=== PATIENT | female | born 1955 | race Caucasian/White ===

== ENCOUNTER 2020-01-07 20:07 | Emergency (ER) | payer OTHER ==
[2020-01-07 20:12] VITALS: BMI 20.4
[2020-01-07] MEDS ORDERED: SODIUM CHLORIDE 1,000 ML IV STA (20:13)
--- NOTE | 2020-01-07 20:14 | PDOC ---
Rapid Medical Evaluation Time Seen by Provider: 01/07/20 20:11 Medical Evaluation: Allergies Allergy/AdvReac Type Severity Reaction Status Date / Time Penicillins Allergy Difficulty Verified 03/27/12 15:31 Breathing 01/07/20 20:11 Pt presents to the ER for weakness to both legs and dizziness after eating figs Exam: NAD, speaking in full sentences. No stridor Orders: EKG, labs, IV Pt to proceed to the ER for further evaluation Discharge Disposition - Diagnosis Lightheaded - Referrals - Patient Instructions - Post Discharge Activity
--- NOTE | 2020-01-07 21:25 | PDOC ---
History of Present Illness - General Chief Complaint: Lightheaded Stated Complaint: SICK Time Seen by Provider: 01/07/20 20:11 - History of Present Illness Initial Comments: 01/07/20 21:24 HPI: 64 y/o F with hx of depression and BL breast CA s/p BL mastectomy presenting with "dizziness" and weakness after eating figs at home. She reports eating alot of sugar today including coffee with sugar, somali toast with syrup, and cook ies. She also reports some anxiety today and concern over her sugar being high. She denies any focal weakness, no falls, no trauma. She denies chest pain, SOB, fevers, LOCKE, syncope, dysuria. PMHx: as noted above ROS: as noted SHx: Denies tobacco use; no alcohol use; no rec drugs Allergies: NKDA ROS: GENERAL/CONSTITUTIONAL: No fever or chills. +gen weakness. HEAD, EYES, EARS, NOSE AND THROAT: No change in vision. No ear pain or discharge. No sore throat. CARDIOVASCULAR: No chest pain or shortness of breath RESPIRATORY: No cough, wheezing, or hemoptysis. GASTROINTESTINAL: No nausea, vomiting, diarrhea or constipation. GENITOURINARY: No dysuria, frequency, or change in urination. MUSCULOSKELETAL: No joint or muscle swelling or pain. No neck or back pain. SKIN: No rash NEUROLOGIC: No headache, vertigo, loss of consciousness, or change in strength/sensation. ENDOCRINE: No increased thirst. No abnormal weight change HEMATOLOGIC/LYMPHATIC: No anemia, easy bleeding, or history of blood clots. ALLERGIC/IMMUNOLOGIC: No hives or skin allergy. PE: GENERAL: Awake, alert, and fully oriented, no acute distress HEAD: No signs of trauma, normocephalic, atraumatic EYES: EOMI, sclera anicteric, conjunctiva clear ENT: Auricles normal inspection, hearing grossly normal, nares patent, oropharyn x clear without exudates. Moist mucosa NECK: Normal ROM, no lymphadenopathy LUNGS: No increased work of breathing, symmetrical chest rise, clear to auscultation bilaterally, no wheezes, crackles or rhonchi HEART: Regular rate, regular rhythm, normal S1 and S2, no murmur, peripheral pulses 2+ and equal bilaterally. ABDOMEN: Soft, nondistended, nontender. No guarding, no rebound. No masses. No CVAT MUSCULOSKELETAL: FROM NEUROLOGICAL: Cranial nerves II through XII grossly intact. Normal speech, s table gait, no focal sensorimotor deficits SKIN: Warm, Dry, normal turgor, no rashes or lesions noted Past History - Medical History Allergies/Adverse Reactions: Allergies Allergy/AdvReac Type Severity Reaction Status Date / Time Penicillins Allergy Difficulty Verified 01/07/20 20:12 Breathing Home Medications: Ambulatory Orders Desvenlafaxine Succinate [Pristiq] 100 mg PO DAILY 10/12/11 Fluticasone/Salmeterol [Advair 250-50 Diskus] 1 each IH PRN PRN 10/12/11 Acetaminophen [Tylenol] 650 mg PO Q4H PRN 11/22/11 Calcium Carbonate/Vitamin D3 [Calcium + Vitamin D Tablet] 1 each PO DAILY 11/22/11 Letrozole [Femara] 2.5 mg PO DAILY 11/22/11 Olanzapine [Zyprexa] 5 mg PO HS 11/22/11 Anemia: No Asthma: Yes (weather induced-cold) Cancer: Yes (breast cancer-sx) Cardiac Disorders: No CVA: No COPD: No CHF: No Dementia: No Diabetes: No GI Disorders: No Disorders: No HTN: No Hypercholesterolemia: Yes Liver Disease: No Seizures: No Thyroid Disease: No - Surgical History Abdominal Surgery: No Appendectomy: Yes Cardiac Surgery: No Cholecystectomy: No Lung Surgery: No Neurologic Surgery: No Orthopedic Surgery: No - Psycho-Social/Smoking History Smoking Status: No Smoking History: Never smoked Have you smoked in the past 12 months: No Number of Cigarettes Smoked Daily: 0 - Substance Abuse Hx (Audit-C & DAST Scrn) How often the patient has a drink containing alcohol: Never Score: In Men: 4 or > Positive; In Women: 3 or > Positive: 0 Screen Result (Pos requires Nsg. Audit-10AR): Negative In the last yr the pt used illegal drug/Rx for NonMed reason: No Score: Yes response is considered Positive: 0 Screen Result (Positive result requires Nsg. DAST-10): Negative *Physical Exam - Vital Signs Last Vital Signs Temp Pulse Resp BP Pulse Ox 98.4 F 78 18 150/79 99 01/07/20 20:10 01/07/20 20:10 01/07/20 20:10 01/07/20 21:05 01/07/20 20:10 ED Treatment Course - LABORATORY CBC & Chemistry Diagram: 01/07/20 21:59 01/07/20 21:59 Medical Decision Making - Medical Decision Making 01/08/20 00:28 64 y/o F with hx of depression and BL breast CA s/p BL mastectomy presenting with "dizziness" and weakness after eating figs at home. With no other complaints at this time. VSS, AF. PE unremarkable -ekg, cbc, cmp, mg, ua, cxr, ivf 01/08/20 00:28 ekg nsr with no michelle/d cxr with no acute pathology labs wnl pending ua and will DC with return pcxn patient symptoms improved agrees with plan and would like to go home recommending followup with cardio 01/08/20 00:42 ua negative will dc home Discharge - Discharge Information Problems reviewed: Yes Clinical Impression/Diagnosis: Lightheaded Condition: Improved Disposition: HOME - Follow up/Referral Referrals: Freddie Rodriguez MD [Primary Care Provider] - Andres Umanzor MD [Staff Physician] - - Patient Discharge Instructions Patient Printed Discharge Instructions: DI for Dizziness-Nonvertigo Additional Instructions: Additional Instructions: Please return to the emergency department with any new or worsening symptoms or concerns including chest pain, shortness of breath, fainting. Please follow up with your primary care physician within 72 hours. Please ensure adequate hydration. Please followup with the meter supervisor referral included in the packet - Post Discharge Activity
[2020-01-07 22:25] LABS: BASO % 0.2 % (0-2.0); HEMATOCRIT 36.1 % (32.4-45.2); HEMOGLOBIN 12.1 GM/dL (10.7-15.3); LYMPH % 20.2 % (8-40); MCH 29.1 pg (25.7-33.7); MCHC 33.4 g/dl (32.0-36.0); MEAN CELL VOLUME 87.2 fl (80-96); MONO % 7.9 % (3.8-10.2); NEUT % 70.7 % (42.8-82.8); PLATELET COUNT 246 K/MM3 (134-434); RBC 4.14 M/mm3 (3.60-5.2); RDW 13.3 % (11.6-15.6); WHITE BLOOD COUNT 8.4 K/mm3 (4.0-10.0)
[2020-01-07 22:53] LABS: ALBUMIN 4.3 g/dl (3.4-5.0); BILIRUBIN,TOTAL 0.2 mg/dL (0.2-1); BLOOD UREA NITROGEN 15.2 mg/dL (7-18); CALCIUM 8.9 mg/dL (8.5-10.1); CREATININE 0.7 mg/dL (0.55-1.3); POTASSIUM 3.8 mmol/L (3.5-5.1); TOT PROT 7.4 g/dl (6.4-8.2)
--- NOTE | 2020-01-07 23:20 | PDOC ---
Attending Attestation - Resident Resident Name: Tylor Fuentes - ED Attending Attestation I have performed the following: I have examined & evaluated the patient, The case was reviewed & discussed with the resident, I agree w/resident's findings & plan - HPI HPI: 01/07/20 23:14 64 yo female w pmhx depression an bilat breast ca sp mastectomy >10 years ago here today w/ near syncope and generalized weakness assoc w/ whole body paraesthesias. denies assoc cp sob or focal weakness slurred speech. Feeling improved now after ivf - Physicial Exam PE: 01/07/20 23:17 Agree w/ res - Medical Decision Making 01/07/20 23:17 64 yo fem w. near syncpe plan ekg NSR 68 normal axis and intervals no acute ischemia Myesha IVF Reasses Well appearing given follow up and return precautions, steady gait, tolerating po 01/11/20 23:51 Discharge - Discharge Information Problems reviewed: Yes Clinical Impression/Diagnosis: Lightheaded Condition: Improved Disposition: HOME - Follow up/Referral Referrals: Freddie Rodriguez MD [Primary Care Provider] - Andres Umanzor MD [Staff Physician] - - Patient Discharge Instructions Patient Printed Discharge Instructions: DI for Dizziness-Nonvertigo Additional Instructions: Additional Instructions: Please return to the emergency department with any new or worsening symptoms or concerns including chest pain, shortness of breath, fainting. Please follow up with your primary care physician within 72 hours. Please ensure adequate hydration. Please followup with the washer assembler referral included in the packet - Post Discharge Activity
[2020-01-08 00:38] LABS: EPI CELLS 12 /uL (0-25.1); HYALINE CASTS 0 /uL (0-3.1); URINE APPEARANCE CLEAR; URINE BACTERIA 22 /uL (0-1359); URINE BILIRUBIN NEGATIVE (NEGATIVE); URINE COLOR YELLOW; URINE GLUCOSE (UA) NEGATIVE (NEGATIVE); URINE KETONE NEGATIVE (NEGATIVE); URINE LEUK ESTERASE TRACE (NEGATIVE); URINE NITRITE NEGATIVE (NEGATIVE); URINE PROTEIN NEGATIVE (NEGATIVE); URINE RBC 1 /uL (0-23.9); URINE UROBILINOGEN 0.2 mg/dL (0.2-1.0); URINE WBC 7 /uL (0-25.8)
[2020-01-08 02:01] VITALS: BP 147/69; PULSE 71; TEMP 98.1
--- NOTE | 2020-01-08 10:16 | EKG ---
Test Reason : Blood Pressure : / mmHG Vent. Rate : 068 BPM Atrial Rate : 068 BPM P-R Int : 120 ms QRS Dur : 102 ms QT Int : 428 ms P-R-T Axes : 002 021 032 degrees QTc Int : 455 ms NORMAL SINUS RHYTHM NORMAL ECG WHEN COMPARED WITH ECG OF 12-OCT-2011 13:21, T WAVE AMPLITUDE HAS DECREASED IN ANTERIOR LEADS Confirmed by MD Hernandez Daniel ([id number]) on 01/08/2020 10:16:25 AM Referred By: Confirmed By:Mikal Hernandez MD
== END 2020-01-08 01:00 | disposition home or self-care (01) ==
LOC: JER 20:07
PROC: 3E0337Z Introduction of Electrolytic and Water Balance Substance into Peripheral Vein, Percutaneous Approach (ICD-10-PCS; principal; 2020-01-07)
DX: R42 Dizziness and giddiness (principal)
CPT/HCPCS: 36415; 71046-TC-FY; 80053; 81003; 82550; 84484; 85025; 93005; 93010; 96360; 99285-25

== ENCOUNTER 2020-01-13 09:00 | Emergency (ER) | payer OTHER ==
[2020-01-13 09:10] VITALS: TEMP 97; BMI 20.4
--- NOTE | 2020-01-13 09:55 | PDOC ---
History of Present Illness - General Chief Complaint: Lightheaded Stated Complaint: SICK Time Seen by Provider: 01/13/20 09:14 - History of Present Illness Initial Comments: Pt is a 64yo F with PMH bipolar disorder, asthma, breast ca s/p b/l mastectomy who presents with lightheadedness, diffuse paresthesias, and loss of appetite over the past week. Pt states that 4 days ago, she discontinued her fluoxetine and olanzapine because she states it was making her feel unwell. States that she took a dose of olanzapine last night for her above mentioned symptoms, without improvement. Reports episodes of lightheadedness, palpitations, diffuse paresthesias, diaphoresis - described as intermittent, lasting 1-2 minutes, with variable duration and frequency. Reports onset of loss of appetite/nausea. Denies f/c, chest pain, SOB, abdominal pain. Denies SI/HI/command hallucinations. PCP: Jennifer Psych: Camelia PMH: see above PSH: mastectomy, Meds: see chart Allergies: penicillin (anaphylaxis) Review of Systems CONSTITUTIONAL:see HPI HEENT:denies rhinorrhea, nasal congestion, sore throat, visual changes CARDIOVASCULAR:denies chest pain, syncope, palpitations, peripheral edema RESPIRATORY:denies cough, shortness of breath, wheezing GASTROINTESTINAL: see HPI; denies abdominal pain, vomiting, diarrhea, constipation, melena, hematochezia GENITOURINARY:denies dysuria, frequency, hematuria, flank pain MUSCULOSKELETAL:denies myalgia, arthralgia HEMATOLOGIC/IMMUNOLOGIC:denies easy bleeding, easy bruising ENDOCRINE: denies unexplained weight gain, unexplained weight loss NEUROLOGIC:reports lightheadedness/imbalance; denies headache, loss of consciousness, dizziness, mental status changes, bladder or bowel incontinence SKIN:denies rash, itching, pallor PSYCHIATRIC:reports anxiety; denies depression, suicidal or homicidal ideation, hallucinations. Physical Exam General: awake, alert, fully oriented, in no acute distress Head: normocephalic, atraumatic; facial twitching noted on exam Eyes: PERRL, EOMI, anicteric sclera, conjunctiva clear ENT: Auricles normal inspection, hearing grossly normal, oropharynx clear without exudates, moist mucous membranes Neck: supple, normal ROM Lung: equal breath sounds b/l, CTA b/l, no crackles, wheezes; no distress, speaks full sentences Heart: RRR, normal S1, S2, no murmurs appreciated Abdomen: soft, non tender, normoactive bowel sounds, no guarding, rebound, masses Extremities: normal ROM, no edema, no erythema or tenderness, DP/PT pulses 2+ and symmetric, no clubbing, cyanosis Neuro: Cranial nerves: Cranial nerves II through XII are intact Motor: The upper extremities are 5/5 in all muscle groups. The lower extremities are 5/5 in all muscle groups. No pronator drift. Sensation: Sensation is intact to light touch throughout. Cerebellar: -dysmetria, -dysdiadochokinesia Gait: Normal Skin: warm, dry, no rashes or lesions noted Psych: flat affect, poor eye contact MDM Pt is a 64yo F with PMH bipolar disorder, asthma, breast ca s/p b/l mastectomy who presents with lightheadedness, diffuse paresthesias, and loss of appetite over the past week. DDx including but not limited to: hyperthyroid, medication related, hypomagnesemia Workup: labs - BMP, TSH/T4, VBG, ekg TX: 1L LR EKG: normal sinus rhythm, HR 75bpm, UT 118ms, QRS 92ms, QTc 417ms, TWI in AVR ED course - reports component of epigastric burning pain a/w nausea and PO intake; Will order Maalox, Pepcid, Viscous Lido; will add on troponin - states would like adjustment in psych medications; informed patient that she will need follow up with her psych for this. Labs: Electrolytes WNL,troponin WNL, TSH/T4 WNL VBG cancelled - episodic symptoms with specific triggers of anxious thoughts; less likely due to acid-base disturbances Re-assessment: Patient stable for discharge. Informed of all lab results. Given follow up instructions and strict return precautions. Patient expressed understanding and agree to plan Disposition: Discharge to home Past History - Medical History Allergies/Adverse Reactions: Allergies Allergy/AdvReac Type Severity Reaction Status Date / Time Penicillins Allergy Difficulty Verified 01/13/20 09:06 Breathing Home Medications: Ambulatory Orders Desvenlafaxine Succinate [Pristiq] 100 mg PO DAILY 10/12/11 Fluticasone/Salmeterol [Advair 250-50 Diskus] 1 each IH PRN PRN 10/12/11 Acetaminophen [Tylenol] 650 mg PO Q4H PRN 11/22/11 Calcium Carbonate/Vitamin D3 [Calcium + Vitamin D Tablet] 1 each PO DAILY 11/22/11 Letrozole [Femara] 2.5 mg PO DAILY 11/22/11 Olanzapine [Zyprexa] 5 mg PO HS 11/22/11 Famotidine [Pepcid -] 20 mg PO BID #14 tablet 01/13/20 Anemia: No Asthma: Yes (weather induced-cold) Cancer: Yes (breast cancer-sx) Cardiac Disorders: No CVA: No COPD: No CHF: No Dementia: No Diabetes: No GI Disorders: No Disorders: No HTN: No Hypercholesterolemia: Yes Liver Disease: No Psychiatric Problems: Yes (anxiety) Seizures: No Thyroid Disease: No - Surgical History Abdominal Surgery: No Appendectomy: Yes Cardiac Surgery: No Cholecystectomy: No Lung Surgery: No Neurologic Surgery: No Orthopedic Surgery: No - Psycho-Social/Smoking History Smoking Status: No Smoking History: Never smoked Have you smoked in the past 12 months: No Number of Cigarettes Smoked Daily: 0 - Substance Abuse Hx (Audit-C & DAST Scrn) How often the patient has a drink containing alcohol: Never Score: In Men: 4 or > Positive; In Women: 3 or > Positive: 0 Screen Result (Pos requires Nsg. Audit-10AR): Negative *Physical Exam - Vital Signs Last Vital Signs Temp Pulse Resp BP Pulse Ox 97 F L 99 H 18 142/88 99 01/13/20 09:03 01/13/20 09:03 01/13/20 09:03 01/13/20 09:03 01/13/20 09:03 ED Treatment Course - LABORATORY CBC & Chemistry Diagram: 01/13/20 10:45 Discharge - Discharge Information Problems reviewed: Yes Clinical Impression/Diagnosis: Lightheaded Acid reflux Qualifiers: Esophagitis presence: esophagitis presence not specified Qualified Code(s): K21.9 - Gastro-esophageal reflux disease without esophagitis Condition: Stable Disposition: HOME - Additional Discharge Information Prescriptions: Famotidine [Pepcid -] 20 mg PO BID #14 tablet - Follow up/Referral Referrals: Freddie Rodriguez MD [Primary Care Provider] - Jose Angel Denise NP [Non Staff, Medical] - - Patient Discharge Instructions Patient Printed Discharge Instructions: DI for Gastroesophageal Reflux Disease (GERD) Additional Instructions: You came into the ER lightheadedness, tingling sensations, and nausea. In the ED, you were evaluated with blood work and electrocardiogram (EKG). Your EKG was normal; Your blood work was normal. You do not appear to be an acute need for immediate hospitalization You were advised to follow up with your primary doctor within 1-2 weeks. Call tomorrow to schedule an appointment You were advised to follow up with your psychiatrist within 1 week. Call tomorrow to schedule an appointment. Discuss your medications with him. You were given a prescription for Pepcid. Take this medication two times a day. Come back to the ER immediately with any new or worsening concerns. Thank you for coming to the [facility] ER. We hope you feel better soon! - Post Discharge Activity
[2020-01-13] MEDS ORDERED: LACTATED RINGERS SOLUTION 1000 ML INFUS.BAG IV ONE (10:08)
[2020-01-13] MEDS ORDERED: FAMOTIDINE 20 MG/50 ML IVPB 20 MG/50 ML MG IVPB ONE ×2 (10:20→10:25)
[2020-01-13] MEDS ORDERED: MAG HYDROX/AL HYDROX/SIMETH -MYLANTA- ORAL SUSPENSION PO ONE (10:20)
[2020-01-13] MEDS ORDERED: LIDOCAINE VISCOUS 2% ORAL/TOP 20 ML UNIT-DOSE CUP MM ONE (10:20)
[2020-01-13] MEDS ORDERED: LIDOCAINE VISCOUS 2% ORAL/TOP 20 ML UNIT-DOSE CUP ONE (10:24)
[2020-01-13] MEDS ORDERED: MAG HYDROX/AL HYDROX/SIMETH 30 ML UNIT-DOSE CUP ONE (10:25)
--- NOTE | 2020-01-13 11:18 | PDOC ---
Documentation entered by Ashish Lawler SCRIBE, acting as scribe for Rao Maguire MD. Rao Maguire MD: This documentation has been prepared by the Nuris mina Angel, SCRIBE, under my direction and personally reviewed by me in its entirety. I confirm that the documentation accurately reflects all work, treatment, procedures, and medical decision making performed by me. Attending Attestation - Resident Resident Name: BayronAngelica - ED Attending Attestation I have performed the following: I have examined & evaluated the patient, The case was reviewed & discussed with the resident, I agree w/resident's findings & plan, Exceptions are as noted - HPI HPI: 01/13/20 11:14 The patient is a 64 year old female with a significant past medical history of asthma, bipolar disorder, depression and BL breast CA s/p BL mastectomy who presents to the ED with loss of appetite, lightheadedness and diffuse paresthesias over the past week. The patient states 4 days ago she stopped taking her fluoxetine and olanzapine because it made her feel worse. However, she notes taking a dose of olanzapine last night for her symptoms with no relief. The patient notes her palpitations are more of panic attacks that occur when she begins to think about life stressers. The patient reports episodes of lightheadedness, diffuse paresthesias and loss of appetite as intermittent, varying in duration and frequency. The patient denies SI/HI, nausea, chest pain, vomiting or cough. - Physicial Exam PE: 01/13/20 11:16 GENERAL: The patient is awake, alert, and fully oriented, Nontoxic - in no acute distress. HEAD: Normocephalic, atraumatic. EYES: extraocular movements intact, sclera anicteric, conjunctiva clear. ENT: Normal voice, Moist mucous membranes. NECK: Normal range of motion, supple without lymphadenopathy, JVD, or masses. LUNGS: Breath sounds equal, clear to auscultation bilaterally. No wheezes, no crackles, no rales. HEART: Regular rate and rhythm, normal S1 and S2 without murmur, rub or gallop. ABDOMEN: Soft, nontender, normoactive bowel sounds. No guarding, no rebound. No masses. EXTREMITIES: Normal range of motion, no edema. No clubbing or cyanosis. No cor ds, erythema, or tenderness. NEUROLOGICAL: No facial asymmetry, Normal speech, normal gait. PSYCH: Normal mood, normal affect. SKIN: Warm, Dry, normal turgor, no rashes or lesions noted. - Medical Decision Making 01/13/20 11:03 suspect anxiety recentlab work without signs of anemia metabolic derangement will hdrate ismael repeat ekg supportive care Heart Score/ECG Review - ECG Impressions Comment:: 01/13/20 11:04 Twelve-lead EKG was performed and reviewed by me. There is normal sinus rhythm with a Rate of 75 The axis is normal. The intervals are normal. There is normal R wave progression There are no ST or T wave abnormalities. Impression: Normal twelve-lead EKG Discharge - Discharge Information Problems reviewed: Yes Clinical Impression/Diagnosis: Lightheaded Acid reflux Qualifiers: Esophagitis presence: esophagitis presence not specified Qualified Code(s): K21.9 - Gastro-esophageal reflux disease without esophagitis Condition: Stable Disposition: HOME - Admission No - Additional Discharge Information Prescriptions: Famotidine [Pepcid -] 20 mg PO BID #14 tablet - Follow up/Referral Referrals: Freddie Rodriguez MD [Primary Care Provider] - Jose Angel Denise NP [Non Staff, Medical] - - Patient Discharge Instructions Patient Printed Discharge Instructions: DI for Gastroesophageal Reflux Disease (GERD) Additional Instructions: You came into the ER lightheadedness, tingling sensations, and nausea. In the ED, you were evaluated with blood work and electrocardiogram (EKG). Your EKG was normal; Your blood work was normal. You do not appear to be an acute need for immediate hospitalization You were advised to follow up with your primary doctor within 1-2 weeks. Call tomorrow to schedule an appointment You were advised to follow up with your psychiatrist within 1 week. Call tomorrow to schedule an appointment. Discuss your medications with him. You were given a prescription for Pepcid. Take this medication two times a day. Come back to the ER immediately with any new or worsening concerns. Thank you for coming to the [facility] ER. We hope you feel better soon! - Post Discharge Activity
[2020-01-13 11:37] LABS: BLOOD UREA NITROGEN 14.9 mg/dL (7-18); CALCIUM 9.7 mg/dL (8.5-10.1); CREATININE 0.6 mg/dL (0.55-1.3); POTASSIUM 4.3 mmol/L (3.5-5.1)
[2020-01-13 12:11] VITALS: BP 150/84; PULSE 73
--- NOTE | 2020-01-14 11:19 | EKG ---
Test Reason : Blood Pressure : / mmHG Vent. Rate : 075 BPM Atrial Rate : 075 BPM P-R Int : 118 ms QRS Dur : 092 ms QT Int : 374 ms P-R-T Axes : 011 026 030 degrees QTc Int : 417 ms NORMAL SINUS RHYTHM NORMAL ECG WHEN COMPARED WITH ECG OF 07-JAN-2020 22:48, NO SIGNIFICANT CHANGE WAS FOUND Confirmed by MARIA ESTHER TUCKER MD ([id number]) on 01/14/2020 11:19:40 AM Referred By: Confirmed By:MARIA ESTHER TUCKER MD
== END 2020-01-13 12:11 | disposition home or self-care (01) ==
LOC: JER 09:00
PROC: 3E033GC Introduction of Other Therapeutic Substance into Peripheral Vein, Percutaneous Approach (ICD-10-PCS; principal; 2020-01-13)
DX: R42 Dizziness and giddiness (principal); K21.9 Gastro-esophageal reflux disease without esophagitis
CPT/HCPCS: 36415; 80048; 84439; 84443; 84484; 93005; 93010; 96374; 99284-25

== ENCOUNTER 2020-07-14 20:30 | Emergency (ER) | payer OTHER ==
[2020-07-14 20:47] VITALS: TEMP 98.3; BMI 19.0
[2020-07-14 22:14] LABS: BASO % 0.7 % (0-2.0); EOS % 2.7 % (0-4.5); HEMATOCRIT 35.7 % (32.4-45.2); LYMPH % 27.9 % (8-40); MCH 29.3 pg (25.7-33.7); MCHC 33.7 g/dl (32.0-36.0); MEAN CELL VOLUME 86.8 fl (80-96); MEAN PLT VOLUME 7.9 fl (7.5-11.1); NEUT % 59.7 % (42.8-82.8); PLATELET COUNT 236 K/MM3 (134-434); RBC 4.11 M/mm3 (3.60-5.2); RDW 13.7 % (11.6-15.6); WHITE BLOOD COUNT 6.2 K/mm3 (4.0-10.0)
[2020-07-14 22:32] LABS: CHLORIDE 107 mmol/L (98-107); POTASSIUM 3.5 mmol/L (3.5-5.1); SODIUM 140 mmol/L (136-145)
[2020-07-14 22:33] LABS: CALCIUM 8.6 mg/dL (8.5-10.1)
[2020-07-14 22:34] LABS: ALBUMIN 3.8 g/dl (3.4-5.0); ANION GAP 5 MMOL/L (8-16); BLOOD UREA NITROGEN 18.1 mg/dL (7-18); CO2 28 mmol/L (21-32); GLUCOSE,RANDOM 98 mg/dL (74-106); MAGNESIUM 2.2 mg/dL (1.8-2.4)
[2020-07-14 22:37] LABS: CREATININE 0.6 mg/dL (0.55-1.3); SGOT/AST 18 U/L (15-37); SGPT/ALT 19 U/L (13-61)
[2020-07-14 22:39] LABS: BILIRUBIN,TOTAL 0.4 mg/dL (0.2-1); TOT PROT 6.6 g/dl (6.4-8.2)
[2020-07-14 22:40] LABS: ALK PHOS 52 U/L (45-117)
[2020-07-14 23:05] VITALS: BP 130/87; PULSE 89
== END 2020-07-14 23:17 | disposition home or self-care (01) ==
LOC: JER 20:30
DX: R11.0 Nausea (principal); R00.2 Palpitations
CPT/HCPCS: 36415; 71045-TC-FY; 80053; 82550; 83735; 84443; 84484; 85025; 93005; 93010; 99285-25

== ENCOUNTER → 2020-11-18 | Day surgery (SDC) | payer OTHER | END | disposition home or self-care (01) | LOC: JRADIR 05:33 | PROVIDERS: ATTEND Internal Medicine Endocrinology, Diabetes & Metabolism | PROC: 0G9K3ZX Drainage of Thyroid Gland, Percutaneous Approach, Diagnostic (ICD-10-PCS; principal; 2020-11-18) | DX: E04.9 Nontoxic goiter, unspecified (principal) | CPT/HCPCS: 10005; 76942; 88173; 88305-TC ==

== ENCOUNTER 2020-12-01 04:42 | Emergency (ER) | payer OTHER ==
[2020-12-01 05:03] VITALS: BMI 20.1
[2020-12-01] MEDS ORDERED: ACETAMINOPHEN 1000 MG/100 ML VIAL (NON FORMULARY) IVPB ONE (05:50)
[2020-12-01 06:20] LABS: INR 0.95 (0.83-1.09); PROTHROMBIN TIME (PATIENT) 11.7 SEC (9.7-13.0)
[2020-12-01 06:21] LABS: CHLORIDE 107 mmol/L (98-107); SODIUM 140 mmol/L (136-145)
[2020-12-01] MEDS ORDERED: ACETAMINOPHEN INJECTION 100 ML IVPB ONE (06:22)
[2020-12-01 06:23] LABS: ACTIVATED PTT 26.4 SECONDS (25.2-36.5)
[2020-12-01 06:23] LABS: ALBUMIN 3.9 g/dl (3.4-5.0); CALCIUM 8.9 mg/dL (8.5-10.1)
[2020-12-01 06:24] LABS: ANION GAP 7 MMOL/L (8-16); BLOOD UREA NITROGEN 18.7 mg/dL (7-18); CO2 26 mmol/L (21-32); GLUCOSE,RANDOM 87 mg/dL (74-106)
[2020-12-01 06:27] LABS: BASO % 0.5 % (0-2.0); EOS % 1.8 % (0-4.5); HEMATOCRIT 40.5 % (32.4-45.2); HEMOGLOBIN 13.2 GM/dL (10.7-15.3); LYMPH % 34.9 % (8-40); MCHC 32.6 g/dl (32.0-36.0); MEAN CELL VOLUME 85.9 fl (80-96); MEAN PLT VOLUME 7.9 fl (7.5-11.1); MONO % 8.1 % (3.8-10.2); NEUT % 54.7 % (42.8-82.8); PLATELET COUNT 271 10^3/uL (134-434); RBC 4.72 M/mm3 (3.60-5.2); RDW 14.5 % (11.6-15.6); WHITE BLOOD COUNT 6.4 K/mm3 (4.0-10.0)
[2020-12-01 06:27] LABS: CREATININE 0.7 mg/dL (0.55-1.3); SGOT/AST 14 U/L (15-37); SGPT/ALT 21 U/L (13-61)
[2020-12-01 06:28] LABS: BILIRUBIN,TOTAL 0.3 mg/dL (0.2-1)
[2020-12-01 06:29] LABS: ALK PHOS 52 U/L (45-117)
[2020-12-01] MEDS ORDERED: SODIUM CHLORIDE 0.9% 500 ML INFUS.BAG IV ONE (07:03)
[2020-12-01 07:52] VITALS: BP 132/83; PULSE 71; TEMP 98.4
== END 2020-12-01 07:45 | disposition home or self-care (01) ==
LOC: JER 04:42
PROC: 3E0333Z Introduction of Anti-inflammatory into Peripheral Vein, Percutaneous Approach (ICD-10-PCS; principal; 2020-12-01)
DX: R00.2 Palpitations (principal)
CPT/HCPCS: 36415; 71045-TC-FY; 80053; 82550; 84443; 84484; 85025; 85610; 85730; 93005; 93010; 99285-25; J0131

== ENCOUNTER 2021-02-12 04:13 | Day surgery (SDC) | payer OTHER ==
[2021-02-12 07:12] VITALS: BMI 18.3
[2021-02-12] MEDS ORDERED: fentaNYL CITRATE 250 MCG/5 ML VIAL ONE (08:22)
[2021-02-12] MEDS ORDERED: MIDAZOLAM HCL 2 MG/2 ML SINGLE DOSE VIAL ONE (08:23)
[2021-02-12] MEDS ORDERED: SUCCINYLCHOLINE CHLORIDE 200 MG/10 ML SYRINGE ONE (08:23)
[2021-02-12] MEDS ORDERED: PROPOFOL 20 ML ONE (08:23)
[2021-02-12] MEDS ORDERED: LIDOCAINE 1%/EPI 1:100000 (20 ML MULTI DOSE VIAL) ONE (08:51)
[2021-02-12] MEDS ORDERED: BUPIVACAINE HCL/PF 0.5% (5MG/ML) 10 ML VIAL ONE (08:51)
[2021-02-12] MEDS ORDERED: MICROFIBRILLAR COLLAGEN 1 GM EACH ONE (08:51)
[2021-02-12] MEDS ORDERED: CLINDAMYCIN PHOSPHATE 600 MG/4 ML VIAL IVPB ONE (09:33)
[2021-02-12] MEDS ORDERED: CLINDAMYCIN PHOSPHATE 600 MG/4 ML VIAL ONE (09:36)
[2021-02-12] MEDS ORDERED: HYDROmorphone HCl 2 MG/ML VIAL ONE (10:07)
[2021-02-12] MEDS ORDERED: ACETAMINOPHEN INJECTION 100 ML IVPB ONE (10:10)
[2021-02-12] MEDS ORDERED: LIDOCAINE 1%/EPI 1:100000 (50 ML MULTI DOSE VIAL) INF ONE (10:15)
[2021-02-12] MEDS ORDERED: BUPIVACAINE HCL/PF 0.5% (5MG/ML) 10 ML VIAL IJ ONE ×2 (10:15)
[2021-02-12] MEDS ORDERED: MICROFIBRILLAR COLLAGEN 1 GM EACH TP ONE (10:21)
[2021-02-12] MEDS ORDERED: ONDANSETRON 4 MG/2 ML VIAL IVPUSH PRN (10:55)
[2021-02-12] MEDS ORDERED: oxyCODONE HCL 5 MG TABLET PO PRN ×2 (10:55)
[2021-02-12] MEDS ORDERED: PROMETHAZINE HCL 25 MG/1 ML VIAL IVPUSH PRN (10:55)
[2021-02-12] MEDS ORDERED: LACTATED RINGERS SOLUTION 1,000 ML IV SCH (11:00)
[2021-02-12 15:43] VITALS: BP 128/76; PULSE 85; TEMP 97.9
== END 2021-02-12 15:35 | disposition home or self-care (01) ==
LOC: JASU-SURG 04:13
PROVIDERS: ATTEND Surgery
PROC: 0GTH0ZZ Resection of Right Thyroid Gland Lobe, Open Approach (ICD-10-PCS; principal; 2021-02-12 09:00)
DX: C73 Malignant neoplasm of thyroid gland (principal)
CPT/HCPCS: 88307-TC; 94760; J0131

== ENCOUNTER 2021-03-29 12:57 | Emergency (ER) | payer OTHER ==
[2021-03-29 13:02] VITALS: TEMP 97; BMI 18.3
[2021-03-29 14:38] LABS: BASO % 0.6 % (0-2.0); EOS % 2.4 % (0-4.5); HEMOGLOBIN 12.8 GM/dL (10.7-15.3); LYMPH % 27.1 % (8-40); MCH 28.8 pg (25.7-33.7); MCHC 33.6 g/dl (32.0-36.0); MEAN CELL VOLUME 85.8 fl (80-96); MEAN PLT VOLUME 7.8 fl (7.5-11.1); NEUT % 61.9 % (42.8-82.8); PLATELET COUNT 306 10^3/uL (134-434); RBC 4.42 M/mm3 (3.60-5.2); RDW 14.1 % (11.6-15.6); WHITE BLOOD COUNT 7.1 K/mm3 (4.0-10.0)
[2021-03-29 14:41] LABS: EPI CELLS 4 /uL (0-25.1); HYALINE CASTS 0 /uL (0-3.1); URINE APPEARANCE CLEAR; URINE BACTERIA 12 /uL (0-1359); URINE BILIRUBIN NEGATIVE (NEGATIVE); URINE COLOR YELLOW; URINE GLUCOSE (UA) NEGATIVE (NEGATIVE); URINE KETONE NEGATIVE (NEGATIVE); URINE LEUK ESTERASE 1+ (NEGATIVE); URINE NITRITE NEGATIVE (NEGATIVE); URINE PROTEIN NEGATIVE (NEGATIVE); URINE RBC 1 /uL (0-23.9); URINE UROBILINOGEN 0.2 mg/dL (0.2-1.0); URINE WBC 9 /uL (0-25.8)
[2021-03-29 14:56] LABS: CHLORIDE 106 mmol/L (98-107); SODIUM 139 mmol/L (136-145)
[2021-03-29 14:58] LABS: ALBUMIN 3.9 g/dl (3.4-5.0); ANION GAP 3 MMOL/L (8-16); CO2 31 mmol/L (21-32)
[2021-03-29 14:59] LABS: GLUCOSE,RANDOM 102 mg/dL (74-106)
[2021-03-29 15:01] LABS: CREATININE 0.8 mg/dL (0.55-1.3); SGOT/AST 19 U/L (15-37); SGPT/ALT 27 U/L (13-61)
[2021-03-29 15:03] LABS: BILIRUBIN,TOTAL 0.2 mg/dL (0.2-1); TOT PROT 7.1 g/dl (6.4-8.2)
[2021-03-29 15:04] LABS: ALK PHOS 64 U/L (45-117)
[2021-03-29 16:09] VITALS: BP 128/84; PULSE 72
== END 2021-03-29 16:15 | disposition home or self-care (01) ==
LOC: JER 12:57
DX: K64.9 Unspecified hemorrhoids (principal)
CPT/HCPCS: 36415; 80053; 81003; 82272; 82550; 84484; 85025; 87086; 87186; 93005; 93010; 99283-25

== ENCOUNTER 2021-05-17 21:44 | Emergency (ER) | payer OTHER ==
[2021-05-17 21:52] VITALS: PULSE 80; TEMP 97.5; BMI 18.3
[2021-05-17] MEDS ORDERED: ACETAMINOPHEN 325 MG TABLET (FP) PO ONE (23:18)
[2021-05-17] MEDS ORDERED: ACETAMINOPHEN 325 MG TABLET (FP) ONE (23:28)
[2021-05-17 23:32] LABS: BASO % 0.9 % (0-2.0); EOS % 3.1 % (0-4.5); HEMATOCRIT 37.3 % (32.4-45.2); HEMOGLOBIN 12.3 GM/dL (10.7-15.3); LYMPH % 35.5 % (8-40); MCH 28.9 pg (25.7-33.7); MCHC 33.1 g/dl (32.0-36.0); MEAN CELL VOLUME 87.4 fl (80-96); MONO % 9.9 % (3.8-10.2); NEUT % 50.6 % (42.8-82.8); PLATELET COUNT 254 10^3/uL (134-434); RBC 4.27 M/mm3 (3.60-5.2); URINE APPEARANCE CLEAR; URINE BILIRUBIN NEGATIVE (NEGATIVE); URINE COLOR YELLOW; URINE GLUCOSE (UA) NEGATIVE (NEGATIVE); URINE KETONE NEGATIVE (NEGATIVE); URINE LEUK ESTERASE NEGATIVE (NEGATIVE); URINE NITRITE NEGATIVE (NEGATIVE); URINE PROTEIN NEGATIVE (NEGATIVE); URINE UROBILINOGEN 0.2 mg/dL (0.2-1.0); WHITE BLOOD COUNT 5.3 K/mm3 (4.0-10.0)
[2021-05-17 23:49] LABS: CHLORIDE 106 mmol/L (98-107); SODIUM 139 mmol/L (136-145)
[2021-05-17 23:51] LABS: CALCIUM 8.6 mg/dL (8.5-10.1)
[2021-05-17 23:52] LABS: ALBUMIN 3.3 g/dl (3.4-5.0); ANION GAP 4 MMOL/L (8-16); BLOOD UREA NITROGEN 24.5 mg/dL (7-18); CO2 29 mmol/L (21-32); GLUCOSE,RANDOM 97 mg/dL (74-106)
[2021-05-17 23:55] LABS: CREATININE 0.6 mg/dL (0.55-1.3); SGOT/AST 18 U/L (15-37); SGPT/ALT 20 U/L (13-61)
[2021-05-17 23:56] LABS: TOT PROT 6.6 g/dl (6.4-8.2)
[2021-05-17 23:57] LABS: BILIRUBIN,TOTAL 0.2 mg/dL (0.2-1)
[2021-05-17 23:58] LABS: ALK PHOS 53 U/L (45-117)
[2021-05-18 05:21] VITALS: BP 127/86
== END 2021-05-18 05:21 | disposition home or self-care (01) ==
LOC: JER 21:44
DX: R42 Dizziness and giddiness (principal)
CPT/HCPCS: 36415; 71045-TC-FY; 80053; 81003; 84439; 84443; 84484; 85025; 87086; 93005; 93010; 99285-25

== ENCOUNTER 2021-08-04 22:40 | Emergency (ER) | payer OTHER ==
[2021-08-04 22:48] VITALS: BP 138/85; TEMP 97.8; BMI 18.6
[2021-08-05 00:49] LABS: BASO % 0.6 % (0-2.0); EOS % 2.8 % (0-4.5); HEMATOCRIT 37.9 % (32.4-45.2); HEMOGLOBIN 13.1 GM/dL (10.7-15.3); LYMPH % 30.8 % (8-40); MCH 29.8 pg (25.7-33.7); MCHC 34.5 g/dl (32.0-36.0); MEAN CELL VOLUME 86.5 fl (80-96); MEAN PLT VOLUME 7.2 fl (7.5-11.1); MONO % 10.4 % (3.8-10.2); NEUT % 55.4 % (42.8-82.8); PLATELET COUNT 274 10^3/uL (134-434); RBC 4.38 M/mm3 (3.60-5.2); RDW 13.5 % (11.6-15.6); WHITE BLOOD COUNT 6.7 K/mm3 (4.0-10.0)
[2021-08-05 00:51] LABS: URINE APPEARANCE CLEAR; URINE BILIRUBIN NEGATIVE (NEGATIVE); URINE COLOR YELLOW; URINE GLUCOSE (UA) NEGATIVE (NEGATIVE); URINE KETONE NEGATIVE (NEGATIVE); URINE LEUK ESTERASE NEGATIVE (NEGATIVE); URINE NITRITE NEGATIVE (NEGATIVE); URINE PROTEIN NEGATIVE (NEGATIVE); URINE UROBILINOGEN 0.2 mg/dL (0.2-1.0)
[2021-08-05 00:54] VITALS: PULSE 71
[2021-08-05 01:17] LABS: BLOOD UREA NITROGEN 16.8 mg/dL (7-18); CALCIUM 8.9 mg/dL (8.5-10.1)
[2021-08-05 01:20] LABS: CREATININE 0.6 mg/dL (0.55-1.3)
[2021-08-05 01:22] LABS: BILIRUBIN,TOTAL 0.2 mg/dL (0.2-1)
== END 2021-08-05 01:56 | disposition home or self-care (01) ==
LOC: JER 22:40
DX: R51.9 Headache, unspecified (principal); K21.9 Gastro-esophageal reflux disease without esophagitis; R00.2 Palpitations
CPT/HCPCS: 36415; 70450-TC; 80053; 81003; 83690; 84439; 84443; 84484; 85025; 87086; 93005; 93010; 99285-25

== ENCOUNTER 2021-08-20 13:32 | Emergency (ER) | payer OTHER ==
[2021-08-20 13:38] VITALS: BMI 19.0
[2021-08-20] MEDS ORDERED: ACETAMINOPHEN 1000 MG/100 ML BAG IVPB ONE (14:50)
[2021-08-20] MEDS ORDERED: SODIUM CHLORIDE 0.9% 500 ML INFUS.BAG IV ONE (14:50)
[2021-08-20] MEDS ORDERED: ACETAMINOPHEN INJECTION 100 ML IVPB ONE (15:04)
[2021-08-20] MEDS ORDERED: FAMOTIDINE 20 MG/50 ML IVPB 20 MG/50 ML MG IVPB ONE (15:04)
[2021-08-20 15:41] LABS: BASO % 0.5 % (0-2.0); EOS % 2.3 % (0-4.5); HEMATOCRIT 39.4 % (32.4-45.2); HEMOGLOBIN 13.1 GM/dL (10.7-15.3); LYMPH % 22.7 % (8-40); MCH 28.7 pg (25.7-33.7); MCHC 33.2 g/dl (32.0-36.0); MEAN CELL VOLUME 86.4 fl (80-96); MEAN PLT VOLUME 7.4 fl (7.5-11.1); MONO % 11.8 % (3.8-10.2); NEUT % 62.7 % (42.8-82.8); PLATELET COUNT 277 10^3/uL (134-434); RBC 4.57 M/mm3 (3.60-5.2); RDW 13.5 % (11.6-15.6); WHITE BLOOD COUNT 8.2 K/mm3 (4.0-10.0)
[2021-08-20] MEDS: FAMOTIDINE 20 MG/50 ML IVPB 20 MG/50 ML MG IVPB ONE ×2 (15:41→15:44)
[2021-08-20 15:42] LABS: PH,URINE 6.5 (5.0-8.0); URINE APPEARANCE Clear; URINE BILIRUBIN Negative (NEGATIVE); URINE COLOR Yellow; URINE GLUCOSE (UA) Negative (NEGATIVE); URINE KETONE Negative (NEGATIVE); URINE LEUK ESTERASE Trace (NEGATIVE); URINE NITRITE Negative (NEGATIVE); URINE PROTEIN Negative (NEGATIVE); URINE UROBILINOGEN 0.2 mg/dL (0.2-1.0)
[2021-08-20 15:46] LABS: EPI CELLS 2 /uL (0-25.1); HYALINE CASTS 0 /uL (0-3.1); URINE BACTERIA 9 /uL (0-1359); URINE RBC 4 /uL (0-23.9); URINE WBC 3 /uL (0-25.8)
[2021-08-20 16:03] LABS: BLOOD UREA NITROGEN 18.2 mg/dL (7-18); CALCIUM 8.9 mg/dL (8.5-10.1)
[2021-08-20 16:04] LABS: ALBUMIN 4.1 g/dl (3.4-5.0)
[2021-08-20 16:06] LABS: CREATININE 0.6 mg/dL (0.55-1.3)
[2021-08-20 16:07] LABS: BILIRUBIN,TOTAL 0.2 mg/dL (0.2-1)
[2021-08-20 19:46] VITALS: BP 134/80; PULSE 75; TEMP 97.8
== END 2021-08-20 23:01 | disposition home or self-care (01) ==
LOC: JER 13:32
DX: K80.51 Calculus of bile duct without cholangitis or cholecystitis with obstruction (principal)
CPT/HCPCS: 36415; 74176-TC; 80053; 81003; 83605; 83690; 84484; 85025; 87086; 93005; 93010; 99285-25; C9803-CS; U0003; U0005

== ENCOUNTER 2021-09-10 04:33 | Day surgery (SDC) | payer OTHER ==
[2021-09-07 12:30] VITALS: BMI 19.0
[2021-09-10 11:19] VITALS: TEMP 98.2
[2021-09-10 11:56] VITALS: BP 141/82; PULSE 71
== END 2021-09-10 12:10 | disposition home or self-care (01) ==
LOC: JASU-ENDO 04:33
PROVIDERS: ATTEND Internal Medicine Gastroenterology
PROC: 0DB78ZX Excision of Stomach, Pylorus, Via Natural or Artificial Opening Endoscopic, Diagnostic (ICD-10-PCS; 2021-09-10)
PROC: 0DB38ZX Excision of Lower Esophagus, Via Natural or Artificial Opening Endoscopic, Diagnostic (ICD-10-PCS; 2021-09-10)
PROC: 0DB98ZX Excision of Duodenum, Via Natural or Artificial Opening Endoscopic, Diagnostic (ICD-10-PCS; principal; 2021-09-10 11:00)
DX: K22.2 Esophageal obstruction (principal); K44.9 Diaphragmatic hernia without obstruction or gangrene; K29.50 Unspecified chronic gastritis without bleeding
CPT/HCPCS: 88305-TC; 88342-TC

== ENCOUNTER 2021-10-23 04:20 | Day surgery (SDC) | payer OTHER ==
[2021-10-21 14:42] VITALS: BMI 18.3
[2021-10-23] MEDS ORDERED: BUPIVACAINE HCL/PF 0.5% (5MG/ML) 10 ML VIAL ONE (07:16)
[2021-10-23] MEDS ORDERED: ACETAMINOPHEN INJECTION 100 ML IVPB ONE (07:53)
[2021-10-23] MEDS ORDERED: SCOPOLAMINE HYDROBROMIDE 1 PATCH PATCH.TD72 ONE (07:53)
[2021-10-23] MEDS ORDERED: PROPOFOL 20 ML ONE (07:58)
[2021-10-23] MEDS ORDERED: ceFAZolin SODIUM 1 GM VIAL ONE (07:59)
[2021-10-23] MEDS ORDERED: MIDAZOLAM HCL 2 MG/2 ML SINGLE DOSE VIAL ONE ×2 (07:59)
[2021-10-23] MEDS ORDERED: DEXAMETHASONE SOD PHOSPHATE 4 MG/1 ML VIAL ONE (07:59)
[2021-10-23] MEDS ORDERED: ROCURONIUM BROMIDE 50 MG/5 ML SYRINGE ONE (08:00)
[2021-10-23] MEDS ORDERED: ceFAZolin SODIUM 1 GM VIAL IVPB ONE (08:28)
[2021-10-23] MEDS ORDERED: BUPIVACAINE HCL/PF 0.5% (5MG/ML) 10 ML VIAL IJ ONE ×2 (08:40)
[2021-10-23] MEDS ORDERED: NEOSTIGMINE METHYLSULFATE 0.5 MG/ML - 10 ML MDV ONE (09:39)
[2021-10-23] MEDS ORDERED: oxyCODONE HCL 5 MG TABLET PO PRN ×2 (09:53)
[2021-10-23] MEDS ORDERED: ONDANSETRON 4 MG/2 ML VIAL IVPUSH PRN (09:53)
[2021-10-23] MEDS ORDERED: PROMETHAZINE HCL 25 MG/1 ML VIAL IVPUSH PRN (09:53)
[2021-10-23] MEDS ORDERED: LACTATED RINGERS SOLUTION 1,000 ML IV SCH (10:00)
[2021-10-23] MEDS ORDERED: FENTANYL CITRATE/PF 50 MCG/ML VIAL ONE (10:15)
[2021-10-23] MEDS ORDERED: PROMETHAZINE HCL 25 MG/1 ML VIAL ONE (11:35)
[2021-10-23 16:51] VITALS: BP 138/75; PULSE 67; TEMP 99
== END 2021-10-23 14:30 | disposition home or self-care (01) ==
LOC: JASU-SURG 04:20
PROVIDERS: ATTEND Surgery
PROC: 0FT44ZZ Resection of Gallbladder, Percutaneous Endoscopic Approach (ICD-10-PCS; principal; 2021-10-23 08:00)
DX: K80.10 Calculus of gallbladder with chronic cholecystitis without obstruction (principal)
CPT/HCPCS: 88304-TC; 94760

== ENCOUNTER 2022-01-10 21:19 | Emergency (ER) | payer OTHER ==
[2022-01-10 21:33] VITALS: PULSE 73; RESP 20; BMI 18.3
[2022-01-10 22:49] LABS: BASO % 0.6 % (0-2.0); EOS % 4.3 % (0-4.5); HEMATOCRIT 37.5 % (32.4-45.2); HEMOGLOBIN 12.7 GM/dL (10.7-15.3); LYMPH % 43.1 % (8-40); MCH 29.7 pg (25.7-33.7); MCHC 33.8 g/dl (32.0-36.0); MEAN CELL VOLUME 87.7 fl (80-96); MEAN PLT VOLUME 7.4 fl (7.5-11.1); MONO % 11.9 % (3.8-10.2); NEUT % 40.1 % (42.8-82.8); PLATELET COUNT 232 10^3/uL (134-434); RBC 4.28 M/mm3 (3.60-5.2); RDW 13.6 % (11.6-15.6); WHITE BLOOD COUNT 5.9 K/mm3 (4.0-10.0)
[2022-01-10 23:11] LABS: ALBUMIN 3.8 g/dl (3.4-5.0); BLOOD UREA NITROGEN 17.8 mg/dL (7-18); CALCIUM 8.6 mg/dL (8.5-10.1); MAGNESIUM 2.4 mg/dL (1.8-2.4)
[2022-01-10 23:14] LABS: CREATININE 0.6 mg/dL (0.55-1.3)
[2022-01-10 23:16] LABS: BILIRUBIN,TOTAL 0.2 mg/dL (0.2-1); TOT PROT 7.1 g/dl (6.4-8.2)
[2022-01-11] MEDS ORDERED: SODIUM CHLORIDE 0.9% 500 ML INFUS.BAG IV ONE (00:15)
[2022-01-11 00:58] VITALS: BP 139/79; TEMP 98.2
[2022-01-11 00:58] LABS: INR 0.97 (0.83-1.09); PROTHROMBIN TIME (PATIENT) 11.1 SEC (9.7-13.0)
[2022-01-11 01:01] LABS: ACTIVATED PTT 29.7 SECONDS (25.2-36.5)
[2022-01-11] MEDS ORDERED: FAMOTIDINE 20 MG/50 ML IVPB 20 MG/50 ML MG IVPB ONE ×2 (01:07→01:29)
[2022-01-11] MEDS ORDERED: MAG HYDROX/AL HYDROX/SIMETH 30 ML UNIT-DOSE CUP PO ONE (01:08)
[2022-01-11] MEDS ORDERED: LIDOCAINE VISCOUS 2% ORAL/TOP 100 ML BOTTLE MM ONE (01:08)
[2022-01-11] MEDS ORDERED: MAG HYDROX/AL HYDROX/SIMETH 30 ML UNIT-DOSE CUP ONE (01:29)
[2022-01-11] MEDS ORDERED: LIDOCAINE VISCOUS 2% ORAL/TOP 15 ML UNIT-DOSE CUP ONE (01:29)
== END 2022-01-11 02:38 | disposition home or self-care (01) ==
LOC: JER 21:19
PROC: 3E033GC Introduction of Other Therapeutic Substance into Peripheral Vein, Percutaneous Approach (ICD-10-PCS; principal; 2022-01-10)
DX: R10.13 Epigastric pain (principal)
CPT/HCPCS: 36415; 71046-TC-FY; 80053; 83735; 84439; 84443; 84484; 85025; 85610; 85730; 86850; 86900; 86901; 93005; 93010; 99285-25; C9803-CS; U0003; U0005

== ENCOUNTER 2022-04-01 04:30 | Day surgery (SDC) | payer OTHER ==
[2022-03-31 14:06] VITALS: BMI 17.9
[2022-04-01 11:51] VITALS: BP 116/69; PULSE 71; RESP 15
[2022-04-01 13:18] VITALS: TEMP 97.4
== END 2022-04-01 12:15 | disposition home or self-care (01) ==
LOC: JASU-ENDO 04:30
PROVIDERS: ATTEND Internal Medicine Gastroenterology
PROC: 0DBK8ZX Excision of Ascending Colon, Via Natural or Artificial Opening Endoscopic, Diagnostic (ICD-10-PCS; principal; 2022-04-01 10:30)
DX: D12.2 Benign neoplasm of ascending colon (principal); K64.8 Other hemorrhoids; K59.89 Other specified functional intestinal disorders; I10 Essential (primary) hypertension
CPT/HCPCS: 88305-TC

== ENCOUNTER 2022-05-14 22:50 | Emergency (ER) | payer OTHER ==
[2022-05-14 23:03] VITALS: BP 130/78; PULSE 70; RESP 18; TEMP 98.2; BMI 17.9
[2022-05-14] MEDS ORDERED: FAMOTIDINE 20 MG/50 ML IVPB 20 MG/50 ML MG IVPB ONE (23:57)
[2022-05-14] MEDS ORDERED: ACETAMINOPHEN 1000 MG/100 ML BAG IVPB ONE (23:57)
[2022-05-14] MEDS ORDERED: SUCRALFATE 1 GM TABLET (FP) PO ONE (23:57)
[2022-05-14] MEDS ORDERED: MAG HYDROX/AL HYDROX/SIMETH -MYLANTA- ORAL SUSPENSION PO ONE (23:57)
[2022-05-15] MEDS ORDERED: SUCRALFATE 1 GM TABLET (FP) ONE ×3 (00:03→00:20)
[2022-05-15] MEDS ORDERED: ACETAMINOPHEN INJECTION 100 ML IVPB ONE (00:03)
[2022-05-15] MEDS ORDERED: MAG HYDROX/AL HYDROX/SIMETH 30 ML UNIT-DOSE CUP ONE (00:03)
[2022-05-15] MEDS ORDERED: FAMOTIDINE 20 MG/50 ML IVPB 20 MG/50 ML MG IVPB ONE (00:04)
[2022-05-15] MEDS ORDERED: SODIUM CHLORIDE 0.9% 500 ML INFUS.BAG IV ONE (01:09)
[2022-05-15 01:10] LABS: BASO % 0.8 % (0-2.0); EOS % 4.6 % (0-4.5); HEMATOCRIT 37.9 % (32.4-45.2); HEMOGLOBIN 12.1 GM/dL (10.7-15.3); LYMPH % 34.2 % (8-40); MCH 28.1 pg (25.7-33.7); MEAN CELL VOLUME 87.7 fl (80-96); MEAN PLT VOLUME 7.9 fl (7.5-11.1); MONO % 10.9 % (3.8-10.2); NEUT % 49.5 % (42.8-82.8); PLATELET COUNT 259 10^3/uL (134-434); RBC 4.32 M/mm3 (3.60-5.2); RDW 13.6 % (11.6-15.6); WHITE BLOOD COUNT 6.4 K/mm3 (4.0-10.0)
[2022-05-15 01:22] LABS: ALBUMIN 3.8 g/dl (3.4-5.0); BLOOD UREA NITROGEN 13.9 mg/dL (7-18); CALCIUM 8.9 mg/dL (8.5-10.1)
[2022-05-15 01:25] LABS: CREATININE 0.6 mg/dL (0.55-1.3)
[2022-05-15 01:27] LABS: BILIRUBIN,TOTAL 0.3 mg/dL (0.2-1); TOT PROT 6.8 g/dl (6.4-8.2)
== END 2022-05-15 03:30 | disposition home or self-care (01) ==
LOC: JER 22:50
PROC: 3E033GC Introduction of Other Therapeutic Substance into Peripheral Vein, Percutaneous Approach (ICD-10-PCS; principal; 2022-05-14)
DX: R07.9 Chest pain, unspecified (principal); R10.13 Epigastric pain
CPT/HCPCS: 36415; 71045-TC-FY; 80053; 83690; 84484; 85025; 93005; 93010; 99285-25

== ENCOUNTER 2022-11-06 14:21 | Emergency (ER) | payer OTHER, MEDICARE ==
[2022-11-06 14:29] VITALS: BP 128/81; PULSE 71; RESP 16; TEMP 99.2
[2022-11-06 16:50] LABS: BASO % 0.4 % (0-2.0); EOS % 1.5 % (0-4.5); HEMATOCRIT 36.1 % (32.4-45.2); HEMOGLOBIN 12.1 GM/dL (10.7-15.3); LYMPH % 27.4 % (8-40); MCH 28.9 pg (25.7-33.7); MCHC 33.5 g/dl (32.0-36.0); MEAN CELL VOLUME 86.3 fl (80-96); MONO % 8.9 % (3.8-10.2); NEUT % 61.8 % (42.8-82.8); PLATELET COUNT 280 10^3/uL (134-434); RBC 4.18 M/mm3 (3.60-5.2); RDW 12.9 % (11.6-15.6); WHITE BLOOD COUNT 7.4 K/mm3 (4.0-10.0)
[2022-11-06 16:52] LABS: URINE APPEARANCE CLEAR; URINE BILIRUBIN NEGATIVE (NEGATIVE); URINE COLOR YELLOW; URINE GLUCOSE (UA) NEGATIVE (NEGATIVE); URINE KETONE NEGATIVE (NEGATIVE); URINE LEUK ESTERASE NEGATIVE (NEGATIVE); URINE NITRITE NEGATIVE (NEGATIVE); URINE PROTEIN NEGATIVE (NEGATIVE); URINE UROBILINOGEN 0.2 mg/dL (0.2-1.0)
[2022-11-06 16:59] LABS: POTASSIUM 4.3 mmol/L (3.5-5.1)
[2022-11-06 17:01] LABS: CALCIUM 9.3 mg/dL (8.5-10.1)
[2022-11-06 17:02] LABS: BLOOD UREA NITROGEN 12.3 mg/dL (7-18)
[2022-11-06 17:05] LABS: CREATININE 0.6 mg/dL (0.55-1.3)
[2022-11-06 17:12] LABS: BILIRUBIN,DIRECT 0.1 mg/dL (0.0-0.2)
[2022-11-06 17:14] LABS: BILIRUBIN,TOTAL 0.2 mg/dL (0.2-1); TOT PROT 7.1 g/dl (6.4-8.2)
== END 2022-11-06 22:55 | disposition home or self-care (01) ==
LOC: JER 14:21
DX: R10.31 Right lower quadrant pain (principal); K59.00 Constipation, unspecified; R93.89 Abnormal findings on diagnostic imaging of other specified body structures; R30.9 Painful micturition, unspecified
CPT/HCPCS: 36415; 74176-TC; 76856-TC; 80048; 80076; 81003; 82550; 84484; 85025; 87086; 93005; 93010; 99285-25

== ENCOUNTER 2023-06-26 10:30 | Day surgery (SDC) | payer OTHER, MEDICARE ==
[2023-06-26] MEDS: DENOSUMAB 60 MG/ML DISP.SYRIN SQ ONE (10:58)
[2023-06-26 11:18] VITALS: BP 115/65; PULSE 86; RESP 14; TEMP 98.6
== END 2023-06-26 11:42 | disposition home or self-care (01) ==
LOC: FINFUSION 10:30 → FM/S 10:35 → FINFUSION 11:42
PROVIDERS: ATTEND Internal Medicine Endocrinology, Diabetes & Metabolism
PROC: 3E013GC Introduction of Other Therapeutic Substance into Subcutaneous Tissue, Percutaneous Approach (ICD-10-PCS; principal; 2023-06-26)
DX: M81.0 Age-related osteoporosis without current pathological fracture (principal); C80.1 Malignant (primary) neoplasm, unspecified; E03.9 Hypothyroidism, unspecified
CPT/HCPCS: 96372; J0897

== ENCOUNTER 2023-12-21 10:54 | Day surgery (SDC) | payer OTHER, MEDICARE ==
[2023-12-21] MEDS: DENOSUMAB 60 MG/ML DISP.SYRIN SQ ONE (11:35)
[2023-12-21 11:40] VITALS: BP 126/78; PULSE 72; RESP 19; TEMP 98.6
== END 2023-12-21 11:46 | disposition home or self-care (01) ==
LOC: FINFUSION 10:54 → FM/S 11:01 → FINFUSION 11:46
PROVIDERS: ATTEND Internal Medicine Endocrinology, Diabetes & Metabolism
PROC: 3E013GC Introduction of Other Therapeutic Substance into Subcutaneous Tissue, Percutaneous Approach (ICD-10-PCS; principal; 2023-12-21)
DX: M81.0 Age-related osteoporosis without current pathological fracture (principal)
CPT/HCPCS: 96372; J0897

== ENCOUNTER 2024-07-10 11:31 | Day surgery (SDC) | payer OTHER, MEDICARE ==
[2024-07-10] MEDS: DENOSUMAB 60 MG/ML DISP.SYRIN SQ ONE (12:19)
[2024-07-10 12:35] VITALS: BP 118/78; PULSE 83; RESP 19; TEMP 98.8
== END 2024-07-10 12:33 | disposition home or self-care (01) ==
LOC: FINJECTION 11:31 → FM/S 11:32 → FINJECTION 12:33
PROVIDERS: ATTEND Internal Medicine Endocrinology, Diabetes & Metabolism
PROC: 3E013GC Introduction of Other Therapeutic Substance into Subcutaneous Tissue, Percutaneous Approach (ICD-10-PCS; principal; 2024-07-10)
DX: M81.0 Age-related osteoporosis without current pathological fracture (principal)
CPT/HCPCS: 96372; J0897